=== PATIENT | male | born 2000 | race Caucasian/White ===

== ENCOUNTER 2020-09-04 13:56 | Emergency (ER) | payer OTHER ==
[2020-09-04 14:07] VITALS: BP 115/65; PULSE 77; TEMP 98.6; BMI 25.0
[2020-09-04] MEDS ORDERED: DIPHTH,PERTUSS(ACELL),TET 0.5 ML DISP.SYRIN IM ONE ×2 (15:12→15:39)
== END 2020-09-04 15:59 | disposition home or self-care (01) ==
LOC: JERFT 13:56
PROC: 0HQGXZZ Repair Left Hand Skin, External Approach (ICD-10-PCS; principal; 2020-09-04)
PROC: 3E0234Z Introduction of Serum, Toxoid and Vaccine into Muscle, Percutaneous Approach (ICD-10-PCS; 2020-09-04)
DX: S61.211A Laceration without foreign body of left index finger without damage to nail, initial encounter (principal)
CPT/HCPCS: 90715; 99284-25